=== PATIENT | female | born 1990 | race Hispanic/Latino ===

== ENCOUNTER 2023-02-10 15:02 | Outpatient (CLI) | payer OTHER | END 2023-02-10 15:03 | disposition home or self-care (01) | LOC: BURRAD 15:02 | PROVIDERS: ATTEND Nurse Practitioner Family | DX: S20.211A Contusion of right front wall of thorax, initial encounter (principal); S40.011A Contusion of right shoulder, initial encounter | CPT/HCPCS: 71046 ==